=== PATIENT | male | born 1985 | race Caucasian/White ===

== ENCOUNTER 2016-12-23 12:59 | Emergency (ER) | payer MEDICAID ==
[2016-12-23 13:10] VITALS: BP 167/71
[2016-12-23] MEDS ORDERED: Sodium Chloride 0.9% 10 ML Syringe FLUSH PRN ×2 (13:33→14:04)
--- NOTE | 2016-12-23 13:40 | EDM.PDOC ---
ED HPI GENERAL MEDICAL PROBLEM - General Chief Complaint: Abdominal Pain Stated Complaint: POSS HERNIA Time Seen by Provider: 12/23/16 13:22 Source of Information: Reports: Patient History Limitations: Reports: No Limitations - History of Present Illness INITIAL COMMENTS - FREE TEXT/NARRATIVE: Patient is a 31-year-old male who presents to the E.D. complaining of right lower abdominal pain. Patient states he's noticed a lump to his right inguinal region for the past 2 weeks. States last night had a throbbing sensation to this location. Pain is worse with palpation. He does have a history of inguinal hernia as a child that needed surgical repair. Their are no precipitating factors. Has known nausea/vomiting, fever/chills, and pain with urination, diarrhea, bloody stools, or any additional complaints. Patient is here from [facility]. Patient is disabled 2nd to 4 heart surgeries. 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 Uncertain what additional abnormalities were noted to his heart. He is on no medications and denies any additional medical history. Patient smokes half pack per day. Denies alcohol or recreational drug use. 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 (see below) (none stated) Right Lower Abdominal Pain Score (Numeric/FACES): 10 - Related Data Allergies Allergy/AdvReac Type Severity Reaction Status Date / Time No Known Allergies Allergy Verified 12/23/16 13:07 Home Meds: Home Meds Magnesium Citrate [Citroma] 296 ml PO ONETIME #1 bottle 12/23/16 [Rx] Past Medical History Cardiovascular History: Reports: Heart Valve Replacement, Other (See Below) Other Cardiovascular History: pulmonary stenosis Social & Family History - Tobacco Use Smoking Status *Q: Current Every Day Smoker Years of Tobacco use: 10 Packs/Tins Daily: 0.5 ED ROS GENERAL - Review of Systems Review Of Systems: See Below Constitutional: Denies: Fever, Chills, Malaise, Weakness, Decreased Appetite Respiratory: Denies: Shortness of Breath, Cough, Sputum Cardiovascular: Denies: Chest Pain, Dyspnea on Exertion, Palpitations GI/Abdominal: Reports: Abdominal Pain. Denies: Anorexia, Black Stool, Bloody Stool, Constipation, Diarrhea, Decreased Appetite, Hematemesis, Nausea, Vomiting : Denies: Dysuria, Flank Pain, Frequency, Hematuria, Pain Musculoskeletal: Denies: Back Pain Neurological: Denies: Dizziness ED EXAM, GI/ABD - Physical Exam Exam: See Below Exam Limited By: No Limitations General Appearance: Alert, WD/WN, No Apparent Distress Ears: Normal External Exam, Hearing Grossly Normal Nose: Normal Inspection Throat/Mouth: Normal Inspection, Normal Oropharynx, Normal Voice, No Airway Compromise Neck: Normal Inspection, Supple, Non-Tender, Full Range of Motion Respiratory/Chest: No Respiratory Distress, Lungs Clear, Normal Breath Sounds, No Accessory Muscle Use, Chest Non-Tender Cardiovascular: Normal Peripheral Pulses, Regular Rate, Rhythm, Systolic Murmur (/6) GI/Abdominal: Normal Bowel Sounds, Soft, No Organomegaly, No Distention, No Mass , Rebound, McBurney's Sign. No: Gandhi's Sign Back Exam: Normal Inspection. No: CVA Tenderness (L), CVA Tenderness (R) Extremities: Normal Inspection, Non-Tender Neurological: Alert, Oriented, CN II-XII Intact, Normal Cognition, No Motor/ Sensory Deficits Psychiatric: Normal Affect, Normal Mood Skin Exam: Warm, Dry, Intact, Normal Color Course - Vital Signs Last Recorded V/S: Last Vital Signs Temp 98.2 F 12/23/16 16:52 Pulse 80 12/23/16 16:52 Resp 18 12/23/16 16:52 BP 167/71 H 12/23/16 13:07 Pulse Ox 95 12/23/16 16:52 - Orders/Labs/Meds Orders: Active Orders 24 hr Category Date Time Status Peripheral IV Care [RC] . DIRECTED Care 12/23/16 13:33 Active Peripheral IV Insertion Adult [OM.PC] Stat Oth 12/23/16 13:33 Ordered Labs: Laboratory Tests 12/23/16 12/23/16 12/23/16 Range/Units 13:35 13:35 13:50 WBC 8.41 (4.23-9.07) K/mm3 RBC 5.70 (4.63-6.08) M/mm3 Hgb 16.9 (13.7-17.5) gm/L Hct 48.1 (40.1-51.0) % MCV 84.4 (79.0-92.2) fl MCH 29.6 (25.7-32.2) pg MCHC 35.1 (32.2-35.5) g/dl RDW Std Deviation 41.3 (35.1-43.9) fL Plt Count 229 (163-337) K/mm3 MPV 11.2 (9.4-12.3) fl Neut % (Auto) 66.8 (34.0-67.9) % Lymph % (Auto) 20.5 L (21.8-53.1) % [place] % (Auto) 9.3 (5.3-12.2) % Eos % (Auto) 2.6 (0.8-7.0) Baso % (Auto) 0.6 (0.1-1.2) % Neut # (Auto) 5.62 H (1.78-5.38) K/mm3 Lymph # (Auto) 1.72 (1.32-3.57) K/mm3 [place] # (Auto) 0.78 (0.30-0.82) K/mm3 Eos # (Auto) 0.22 (0.04-0.54) K/mm3 Baso # (Auto) 0.05 (0.01-0.08) K/mm3 Sodium 142 (136-145) mEq/L Potassium 4.1 (3.5-5.1) mEq/L Chloride 107 (98-107) mEq/L Carbon Dioxide 25 (21-32) mEq/L Anion Gap 14.1 (5-15) BUN 12 (7-18) mg/dL Creatinine 1.0 (0.7-1.3) mg/dL Est Cr Clr Drug Dosing 98.36 mL/min Estimated GFR (MDRD) > 60 (>60) mL/min BUN/Creatinine Ratio 12.0 L (14-18) Glucose 98 (74-106) mg/dL Calcium 9.0 (8.5-10.1) mg/dL Total Bilirubin 0.8 (0.2-1.0) mg/dL AST 18 (15-37) U/L ALT 36 (16-63) U/L Alkaline Phosphatase 47 (46-116) U/L C-Reactive Protein < 0.2 (<1.0) mg/dL Total Protein 7.5 (6.4-8.2) g/dl Albumin 4.1 (3.4-5.0) g/dl Globulin 3.4 gm/dL Albumin/Globulin Ratio 1.2 (1-2) Urine Color (Yellow) Urine Appearance (Clear) Urine pH (5.0-8.0) Ur Specific [place] (1.005-1.030) Urine Protein (Negative) Urine Glucose (UA) (Negative) Urine Ketones (Negative) Urine Occult Blood (Negative) Urine Nitrite (Negative) Urine Bilirubin (Negative) Urine Urobilinogen (0.2-1.0) Ur Leukocyte Esterase (Negative) Urine RBC (0-5) /hpf Urine WBC (0-5) /hpf Ur Epithelial Cells (0-5) /hpf Urine Bacteria (FEW) /hpf Urine Mucus (FEW) /hpf Urine Opiates Screen Negative (NEGATIVE) Ur Buprenorphine Scrn Negative (NEGATIVE) Ur Oxycodone Screen Negative (NEGATIVE) Urine Methadone Screen Negative (NEGATIVE) Ur Propoxyphene Screen Negative (NEGATIVE) Ur Barbiturates Screen Negative (NEGATIVE) Ur Tricyclics Screen Negative (NEGATIVE) Ur Phencyclidine Scrn Negative (NEGATIVE) Ur Amphetamine Screen Negative (NEGATIVE) U Methamphetamines Scrn Negative (NEGATIVE) U Benzodiazepines Scrn Negative (NEGATIVE) U Cocaine Metab Screen Negative (NEGATIVE) U Marijuana (THC) Screen Presumptive positive H (NEGATIVE) 12/23/16 Range/Units 13:50 WBC (4.23-9.07) K/mm3 RBC (4.63-6.08) M/mm3 Hgb (13.7-17.5) gm/L Hct (40.1-51.0) % MCV (79.0-92.2) fl MCH (25.7-32.2) pg MCHC (32.2-35.5) g/dl RDW Std Deviation (35.1-43.9) fL Plt Count (163-337) K/mm3 MPV (9.4-12.3) fl Neut % (Auto) (34.0-67.9) % Lymph % (Auto) (21.8-53.1) % [place] % (Auto) (5.3-12.2) % Eos % (Auto) (0.8-7.0) Baso % (Auto) (0.1-1.2) % Neut # (Auto) (1.78-5.38) K/mm3 Lymph # (Auto) (1.32-3.57) K/mm3 [place] # (Auto) (0.30-0.82) K/mm3 Eos # (Auto) (0.04-0.54) K/mm3 Baso # (Auto) (0.01-0.08) K/mm3 Sodium (136-145) mEq/L Potassium (3.5-5.1) mEq/L Chloride (98-107) mEq/L Carbon Dioxide (21-32) mEq/L Anion Gap (5-15) BUN (7-18) mg/dL Creatinine (0.7-1.3) mg/dL Est Cr Clr Drug Dosing mL/min Estimated GFR (MDRD) (>60) mL/min BUN/Creatinine Ratio (14-18) Glucose (74-106) mg/dL Calcium (8.5-10.1) mg/dL Total Bilirubin (0.2-1.0) mg/dL AST (15-37) U/L ALT (16-63) U/L Alkaline Phosphatase (46-116) U/L C-Reactive Protein (<1.0) mg/dL Total Protein (6.4-8.2) g/dl Albumin (3.4-5.0) g/dl Globulin gm/dL Albumin/Globulin Ratio (1-2) Urine Color Yellow (Yellow) Urine Appearance Clear (Clear) Urine pH 5.5 (5.0-8.0) Ur Specific [place] > or = 1.030 (1.005-1.030) Urine Protein Negative (Negative) Urine Glucose (UA) Negative (Negative) Urine Ketones Negative (Negative) Urine Occult Blood Negative (Negative) Urine Nitrite Negative (Negative) Urine Bilirubin Negative (Negative) Urine Urobilinogen 0.2 (0.2-1.0) Ur Leukocyte Esterase Negative (Negative) Urine RBC Not seen (0-5) /hpf Urine WBC 0-5 (0-5) /hpf Ur Epithelial Cells Not seen (0-5) /hpf Urine Bacteria Not seen (FEW) /hpf Urine Mucus Many H (FEW) /hpf Urine Opiates Screen (NEGATIVE) Ur Buprenorphine Scrn (NEGATIVE) Ur Oxycodone Screen (NEGATIVE) Urine Methadone Screen (NEGATIVE) Ur Propoxyphene Screen (NEGATIVE) Ur Barbiturates Screen (NEGATIVE) Ur Tricyclics Screen (NEGATIVE) Ur Phencyclidine Scrn (NEGATIVE) Ur Amphetamine Screen (NEGATIVE) U Methamphetamines Scrn (NEGATIVE) U Benzodiazepines Scrn (NEGATIVE) U Cocaine Metab Screen (NEGATIVE) U Marijuana (THC) Screen (NEGATIVE) Meds: Medications Discontinued Medications Generic Name Dose Route Start Last Admin Trade Name Freq PRN Reason Stop Dose Admin Diatrizoate Meglum/Diatrizoate Sod 90 ml 12/23/16 14:04 12/23/16 14:48 Gastrografin 37% PO 12/23/16 14:05 90 ml ONETIME ONE Administration Hydromorphone HCl 0.25 mg 12/23/16 13:53 12/23/16 14:01 Dilaudid IVPUSH 12/23/16 13:54 0.25 mg ONETIME ONE Administration Sodium Chloride 1,000 mls @ 250 mls/hr 12/23/16 13:45 12/23/16 13:46 Normal Saline IV 250 mls/hr ASDIRECTED ROBER Administration Iopamidol 150 ml 12/23/16 14:04 12/23/16 14:48 Isovue-300 (61%) IVPUSH 12/23/16 14:05 125 ml ONETIME ONE Administration Sodium Chloride 10 ml 12/23/16 13:33 12/23/16 13:47 Saline Flush FLUSH 10 ml ASDIRECTED PRN Administration Keep Vein Open Sodium Chloride 10 ml 12/23/16 14:04 12/23/16 14:49 Saline Flush FLUSH 10 ml ONETIME PRN Administration IV FLUSH - Re-Assessments/Exams Free Text/Narrative Re-Assessment/Exam: 12/23/16 13:35 Ordered peripheral IV. Initial labs and studies include CBC, chem 14, CRP, urine drug tox, UA, abdominal and pelvis CT with oral and IV contrast. 12/23/16 13:54 Ordered dilaudid 0.25mgIVP for pain. CBC and c14 essentially normal. CRP <0.2. UA negative for infection. Urine drug tox positive for THC. CT abdomen and pelvis impression: Innumerable gallstones filling the gallbladder. Mild increased stool throughout the colon and other incidental findings as noted above.Small fat containing bilateral inguinal hernias are noted. NO free fluid or inflammatory change is seen. Shared results of labs and CT with patient. He is aware of small inguinal hernias. Will discharge patient home with instructions with PCP and/or General Surgeon for further evaluation. Discharge instructions as documented. Departure - Departure Time of Disposition: 16:08 Disposition: Home, Self-Care 01 Condition: good Clinical Impression: Right lower quadrant abdominal pain, Increased stool volume Bilateral inguinal hernia Qualifiers: Obstruction and gangrene presence: without obstruction or gangrene Recurrence: recurrent Qualified Code(s): K40.21 - Bilateral inguinal hernia, without obstruction or gangrene, recurrent - Discharge Information Prescriptions: Magnesium Citrate [Citroma] 296 ml PO ONETIME #1 bottle Instructions: Abdominal Pain, Adult, [id number] Referrals: PCP,Not In Area [Primary Care Provider] - Mae Soliz MD [Physician] - Annette Lennon [Physician] - Forms: ED Department Discharge Additional Instructions: CT of the abdomen pelvis revealed Innumerable gallstones filling the gallbladder. Mild increased stool throughout the colon and other incidental findings as noted above.Small fat containing bilateral inguinal hernias are noted. NO free fluid or inflammatory change is seen. Labs were essentially normal. Will have you take ibuprofen and tylenol in alternating fashion for pain. Followup with PCP in the next 5 to 7 days for reevaluation if pain persists. Return to the E.D. if you develop any new or worsening symptoms. Take the citroma 296mls upon returning to home with colace 100mg PO. Continue taking colace 100 mg twice a day for 5 days. Will have start taking 1 capful miralax every a.m. with copious amounts of water. - My Orders Last 24 Hours: My Active Orders 12/23/16 13:33 Peripheral IV Care [RC] . DIRECTED Peripheral IV Insertion Adult [OM.PC] Stat - Assessment/Plan Last 24 Hours: My Active Orders 12/23/16 13:33 Peripheral IV Care [RC] . DIRECTED Peripheral IV Insertion Adult [OM.PC] Stat
[2016-12-23] MEDS ORDERED: Sodium Chloride 0.9% 1,000 ML IV SCH (13:45)
[2016-12-23] MEDS ORDERED: HYDROmorphone 1 MG/ML Syringe IVPUSH ONE (13:53)
[2016-12-23] MEDS ORDERED: Iopamidol 612 MG/ML 150 ML Bottle IVPUSH ONE (14:04)
[2016-12-23] MEDS ORDERED: Diatrizoate Meglumine/Diatrizoate Sodium 37% 120 ML Bottle PO ONE (14:04)
--- NOTE | 2016-12-23 15:23 | CT ---
CT abdomen and pelvis Technique: Multiple axial sections were obtained from above the dome of the diaphragm inferiorly through the pubic symphysis. Intravenous and oral contrast has been given. Delayed images were also obtained through the pelvis. Comparison: No previous abdominal imaging. Findings: Visualized lung bases shows nothing acute. Heart size is mildly enlarged. Liver shows no focal parenchymal abnormality. Gallbladder is filled with innumerable gallstones. Spleen appears within normal limits. Adrenal glands show no nodule. Pancreas is unremarkable. Kidneys show symmetric contrast enhancement without hydronephrosis. Small low-density abnormality is noted within the upper right kidney most likely representing a small cyst measuring 5 mm. Aorta shows no aneurysmal dilatation. No retroperitoneal adenopathy is seen. No mesenteric abnormalities are seen. Appendix is seen which appears normal. No pelvic mass or adenopathy is seen. Small fat-containing bilateral inguinal hernias are noted. No free fluid or inflammatory change is seen. No bowel dilatation is noted. Delayed images shows contrast within the distal ureters and within the bladder. Mild increased stool is noted throughout the colon. Bone window settings were reviewed which appear within normal limits for the patient's age. Impression: 1. Innumerable gallstones filling the gallbladder. 2. Mild increased stool throughout the colon and other incidental findings as noted above. Diagnostic code #3
== END 2016-12-23 16:52 | disposition home or self-care (01) ==
LOC: JD.ED 12:59
DX: K40.21 Bilateral inguinal hernia, without obstruction or gangrene, recurrent (principal); R19.5 Other fecal abnormalities; F17.210 Nicotine dependence, cigarettes, uncomplicated; Z95.2 Presence of prosthetic heart valve
CPT/HCPCS: 36415; 74177; 80053; 80306; 81001; 85025; 86140; 96361; 96374; 99284; J1170; J7040; J7050; Q9963; Q9967